=== PATIENT | male | born 1990 | race Caucasian/White ===

== ENCOUNTER → 2016-11-24 | Emergency (ER) | payer MEDICAID, OTHER ==
[~2016-11-24] VITALS: Ht 175.3 cm; Wt 84.8 kg
[~2016-11-24] MED LIST: AMAN10CA GT; COLA100C3 PO; DOXE10CA PO; FLUO10TA30 PO; KETOROLAC 30 MG/ML VIAL (J1885) IV ONE; METOCLOPRAMIDE INJ 10MG/2ML VIAL (J2765) IV ONE; NS 1,000 ML IV ONE; SUBO8MIS SL; diphenhydrAMINE INJ 50MG/ML VIAL (J1200) IV ONE
[2016-11-24 03:13] VITALS: BP 136/78
--- NOTE | 2016-11-24 04:50 | REPUSA ---
CLINICAL HISTORY: Headaches. TECHNIQUE: Multiple axial brain CT scan sections were obtained from base to vertex without contrast a dministration. COMMENTS: The study shows normal configuration of sella turcica. There are no intra or extra-axial collections. There is no mass effect or midline shift. There is no evidence of hematoma formation. No hydrocephal us is present. No abnormal calcifications are noted. No significant abnormalities are seen either in the posterior fossa or supratentorial compartment. The sinuses and mastoid air cells are patent. IMPRESSION: No change from the prior exam on 02/20/2013. No evidence of acute intracranial pathology. Thank you for your kind referral of this patient.
== END | disposition home or self-care (01) ==
LOC: M ED 05:51
DX: R51 Headache (principal)

== ENCOUNTER 2017-03-01 22:47 | Day surgery (SDC) | payer OTHER ==
[~2017-03-01] VITALS: Ht 175.3 cm; Wt 77.0 kg
[2017-03-01] MEDS: SENOKOT S TAB PO SCH (21:00)
[~2017-03-01 22:47] MED LIST changes: +AMAN100C18 PO; -AMAN10CA GT; -COLA100C3 PO; +COLA100C5 PO; -KETOROLAC 30 MG/ML VIAL (J1885) IV ONE; -METOCLOPRAMIDE INJ 10MG/2ML VIAL (J2765) IV ONE; -NS 1,000 ML IV ONE; -diphenhydrAMINE INJ 50MG/ML VIAL (J1200) IV ONE
[2017-03-01 22:50] VITALS: BP 108/58
[2017-03-01] MEDS ORDERED: OMEP20CA3 PO (23:25)
[2017-03-01] MEDS ORDERED: [UNRECOGNIZED DRUG - CODE] PO (23:25)
[2017-03-01] MEDS ORDERED: NICODIS TD (23:25)
[2017-03-01] MEDS ORDERED: SUBO4MIS SL (23:25)
[2017-03-01] MEDS ORDERED: LIDOCAINE 1% SDV INJ 30 ML VIAL As Ordered ONE (23:31)
[2017-03-01] MEDS ORDERED: BUPIVACAINE HCL 0.25% 30 ML VIAL As Ordered ONE (23:31)
[2017-03-01] MEDS ORDERED: ZOSYN 3.375 GM VIAL (J2543) As Ordered ONE (23:34)
[2017-03-01] MEDS ORDERED: MIDAZOLAM INJ 2 MG/2 ML VIAL (J2250) As Ordered ONE (23:44)
[2017-03-01] MEDS ORDERED: fentaNYL 250 MCG/5 ML INJECTION (J3010) As Ordered ONE (23:44)
--- NOTE | 2017-03-01 23:48 | HPEPDOC ---
General Surgery H&P Date of Admission Mar 01, 2017 at 22:47 History and Physical CHIEF COMPLAINT: Abdominal pain HISTORY OF PRESENT ILLNESS: Patient was transferred from [facility] emergency room where he presented today with complaints of overnight history of ongoing abdominal pain initially periumbilical later on localizing to the right lower quadrant. Patient reports sharp, constant pain over the right heart quadrant since this morning associated with few episodes of vomiting, nausea. No fevers reported. No sick contacts reported. Denies diarrhea. ALLERGIES: Please see below. HOME MEDICATIONS: Please see below. PAST MEDICAL HISTORY: 1. Previous history of heroin abuse 2. PAST SURGICAL HISTORY: 1. Left knee, meniscus surgery 2. Removal of enlarged lymph node submandibular area PERSONAL/SOCIAL HISTORY: Patient uses a cigarette, on Suboxone REVIEW OF SYSTEMS: GENERAL: Denies chills, fatigue, fever, weight gain and weight loss. HEENT: Denies blurred vision and double vision. Denies ear symptoms. Denies hoarseness. NECK: Denies any neck pain. CARDIOVASCULAR: Denies chest pain and palpitations. MUSCULOSKELETAL: Denies arthralgias, back pain and thrombophlebitis. SKIN: Denies rash. NEUROLOGIC: Denies headache, stroke and transient ischemic attack. PSYCHIATRIC: Denies anxiety and depression. ENDOCRINE: Denies thyroid disease. HEMATOLOGY/ONCOLOGY: Denies any bleeding or clotting disorder. HEART: Denies any chest pains, palpitations, paroxysmal dyspnea, orthopnea. PULMONARY: Denies chronic cough, dyspnea and wheezing. GASTROINTESTINAL: See HPI. GENITOURINARY: Denies dysuria, frequency, hematuria and nocturia. ENDOCRINE: Denies polydipsia, polyphagia, polyuria, heat or cold intolerance. INFECTIOUS: Denies any recent upper respiratory tract infection, UTI, need for use of antibiotics. NUTRITION: Reports good appetite. PHYSICAL EXAMINATION: VITAL SIGNS: Please see below. GENERAL APPEARANCE: Patient seen at bedside, appears mildly uncomfortable. Awake , alert, oriented. Pain rated 5/10 HEENT: Normocephalic, atraumatic. [place] palpebral conjunctivae. Anicteric sclerae. Lips dry CHEST: No chest wall abnormalities. Normal respiratory motion/effort. NECK: Supple. No thyromegaly. No lymphadenopathies. LUNGS: Lung sounds are clear to auscultation bilaterally. No wheezing appreciated. HEART: No chest wall abnormalities. Heart rate and rhythm are regular with no murmurs. ABDOMEN: Abdomen is flat, soft, nondistended tender over the right lower quadrant and towards her right flank area with mild guarding. No hepatosplenomegaly. No umbilical or groin herniations, SKIN: Warm, dry EXTREMITIES: Extremities have no deformities. No edema identified. NEUROLOGICAL: Awake alert and oriented ANCILLARIES: . LABORATORY DATA: Please see below. MICROBIOLOGY: Please see below. IMAGING: . CT scan of the abdomen and pelvis Acute appendicitis with associated phlegmon no abscess IMPRESSION AND PLAN: . Acute appendicitis with localized peritonitis Patient was advised need for surgery. Explained to him the details of the procedure, risks and benefits of laparoscopic appendectomy as well as expected postoperative course. He'll be given Zosyn preoperatively. Consent obtained from the patient. Vital Signs Vital Signs Date Time Temp Pulse Resp B/P (MAP) Pulse Ox O2 Delivery O2 Flow Rate FiO2 03/01/17 22:50 97.8 92 18 108/58 (75) 92 Room Air Home Medications Scheduled (Fluoxetine HCl) 10 Mg Tab, 10 MG PO DAILY, (Reported) Amantadine HCl (Amantadine HCl) 100 Mg Cap, 200 MG PO QHS, (Reported) Buprenorphine/Naloxone (Suboxone 4-1 mg) 1 Mis Mis, 1 MIS SL BID, (Reported) PATIENT CUTS 8/2MG FILM UP AND TAKES THROUGHOUT THE DAY TO TOTAL 1 FILM OF 8/ 2MG Docusate Sodium (Colace) 100 Mg Cap, 200 MG PO DAILY, (Reported) Doxepin HCl (Doxepin HCl) 10 Mg Cap, 10 MG PO QHS, (Reported) Ketorolac Tromethamine (Ketorolac Tromethamine) 10 Mg Tab, 10 MG PO Q8H Nicotine (Nicotine Step 1) 21 Mg/24 Hr Dis, 21 MG TD DAILY, (Reported) Omeprazole (Omeprazole) 20 Mg Cap, 20 MG PO DAILY, (Reported) Scheduled PRN Trimethobenzamide HCl (Trimethobenzamide HCl) 300 Mg Cap, 300 MG PO Q6H PRN for NAUSEA, (Reported) Allergies Coded Allergies: No Known Allergies (Unverified , 11/24/16) KAYLEIGH PIERRE MD Mar 01, 2017 23:48
[2017-03-02] MEDS ORDERED: PROPOFOL 200 MG/20 ML VIAL As Ordered ONE (00:28)
[2017-03-02] MEDS ORDERED: ROCURONIUM BROMIDE 50 MG/5 ML VIAL/SYRINGE As Ordered ONE (00:28)
[2017-03-02] MEDS ORDERED: LIDOCAINE 2% INJ 100 MG/5 ML SDV (FOR ANES.) As Ordered ONE (00:28)
[2017-03-02] MEDS ORDERED: ONDANSETRON 4MG/2ML VIAL (J2405) As Ordered ONE (00:28)
[2017-03-02] MEDS ORDERED: dexameTHASONE 4 MG/ML 1ML VIAL (J1100) As Ordered ONE (00:28)
[2017-03-02] MEDS ORDERED: SUCCINYLCHOLINE 100 MG/5 ML SYRINGE (J0330) As Ordered ONE (00:28)
[2017-03-02] MEDS ORDERED: HYDROmorphone HCL 2 MG/ML 1ML VIAL (J1170) As Ordered ONE (00:39)
[2017-03-02] MEDS ORDERED: LR 1,000 ML IV SCH ×2 (01:12→01:45)
[2017-03-02] MEDS ORDERED: NORCO, ANEXSIA 5/325MG TABLET (HYDROcodone/ACETAMINOPHEN) PO PRN ×2 (01:15)
[2017-03-02] MEDS ORDERED: KETOROLAC 30 MG/ML VIAL (J1885) IV PRN (01:15)
[2017-03-02] MEDS ORDERED: ACETAMINOPHEN TAB 650MG DOSE (2X325MG) PO PRN (01:15)
[2017-03-02] MEDS ORDERED: MORPHINE 4 MG/ML 1ML SYRINGE IV PRN (01:15)
[2017-03-02] MEDS ORDERED: ONDANSETRON 4MG/2ML VIAL (J2405) IV PRN ×2 (01:15→01:45)
[2017-03-02] MEDS ORDERED: HYDROmorphone HCL 1 MG/ML SYRINGE (J1170) IV PRN (01:45)
[2017-03-02] MEDS ORDERED: fentaNYL 100 MCG/2 ML INJECTION (J3010) IV PRN (01:45)
[2017-03-02] MEDS ORDERED: PERCOCET 5MG/325MG TAB PO PRN (01:45)
[2017-03-02 02:00] VITALS: BP 117/59
[2017-03-02 02:30] VITALS: BP 116/62
[2017-03-02 03:30] VITALS: BP 114/57
[2017-03-02] MEDS: PIPERACILLIN/TAZOBACTAM SOD 3.375 GM in D5W MINI-BAG PLUS 50 ML IV SCH ×2 (03:50→09:21)
[2017-03-02 04:30] VITALS: BP 109/65
[2017-03-02 06:00] VITALS: BP 107/52
[2017-03-02 07:04] LABS: ANION GAP 8 MEQ/L (8-16); BLOOD UREA NITROGEN 11 MG/DL (7-18); CALCIUM LEVEL 7.9 MG/DL (8.5-10.1); CARBON DIOXIDE LEVEL 27 MEQ/L (21-32); CHLORIDE LEVEL 106 MEQ/L (98-107); CREATININE FOR GFR 0.84 MG/DL (0.70-1.30); GLOMERULAR FILTRATION RATE > 60.0 (>60); GLUCOSE, FASTING 117 MG/DL (70-105); POTASSIUM SERUM 4.3 MEQ/L (3.5-5.1); SODIUM LEVEL 141 MEQ/L (136-145)
[2017-03-02 07:05] LABS: BASO % 0.1 % (0.0-1.0); EOS % 0.1 % (0.0-3.0); LARGE UNSTAINED CELL % 0.2 % (0.0-4.0); LYMPH # 0.8 K/mm3 (1.5-6.5); LYMPH % 8.2 % (24.0-44.0); MEAN CORPUSCULAR HEMOGLOBIN 28.6 pg (27.0-33.0); MEAN CORPUSCULAR HGB CONC 35.7 g/dl (32.0-36.5); MEAN CORPUSCULAR VOLUME 80.1 fl (80.0-96.0); MONO # 0.3 K/mm3 (0.0-0.8); MONO % 2.6 % (0.0-5.0); NEUTROPHILS # 8.5 K/mm3 (1.8-7.7); NEUTROPHILS % 88.8 % (36.0-66.0); PLATELET COUNT, AUTOMATED 221 k/mm3 (150-450); RED CELL DISTRIBUTION WIDTH 12.7 % (11.5-14.5); WHITE BLOOD COUNT 9.6 K/mm3 (4.0-10.0)
[2017-03-02] MEDS: SENOKOT S TAB PO SCH (09:21)
[2017-03-02] MEDS ORDERED: KETO10TAB PO (11:50)
--- NOTE | 2017-03-25 22:10 | ROOPDOC ---
[facility] Report Of Operation Report of Operation DATE OF PROCEDURE: 03/02/2017 PREPROCEDURE DIAGNOSES: Acute appendicitis. POSTPROCEDURE DIAGNOSES: Acute nonperforated appendicitis. PROCEDURE: Laparoscopic appendectomy. SURGEON: Checo Hinojosa MD [employer] WORKER: MARILUZ Harrington ANESTHESIA: Gen. anesthesia. ESTIMATED BLOOD LOSS: Approximately 10 mL. COMPLICATIONS: None. REMARKS: Acutely inflamed distal half of the appendix, nonperforated. PROCEDURE NOTE: Patient is a healthy 27-year-old male who was transferred from [facility] with 1 day history of abdominal pain diagnosed to have acute appendicitis. He is brought to the OR for laparoscopic appendectomy. DESCRIPTION OF PROCEDURE: Patient has been given a dose of Zosyn perioperatively.Patient was brought to the operating room, placed supine on the table. Sequential compression device placed for DVT prophylaxis. General endotracheal anesthesia started. The abdomen prepped and draped in usual sterile fashion. After a surgical timeout, we began our surgery Entry into the abdomen done through an incision above the umbilicus. Veress needle inserted on a controlled fashion. Intra-abdominal placement confirmed with saline drop technique. CO2 insufflation started to a pressure of 15 mmHg. Using the same incision a 12 mm port was placed under direct vision of laparoscope. Insertion site was inspected for injury and none was found. She was placed on a Trendelenburg position the right side tilted to about 30 to allow for better visualization of the appendix. 2 working ports were placed at the suprapubic area and left lower quadrant area under direct vision. Operative findings: The distal half of the appendix is noted mildly inflamed, thickened, with venous congestion but otherwise no perforation noted. A small amount of serous fluid in the right gutter noted. The appendix was located, the adhered bowels and mesentery was widely dissected away from the appendix freeing up the appendix from the inflammatory adhesions using [place] instrument and suction irrigation. The Surrounding bowels retracted away from the appendix. This was grasped to pull the base of the appendix into view. The mesoappendix was divided using Harmonic scalpel down to the base. A Vicryl Endoloop was placed to ligate the appendix at its base then divided with a Harmonic Scalpel the stump cauterized. Stump appears healthy. Appendix was then delivered into an Endo Catch bag. After re-insufflation the surgical site was inspected for hemostasis, the visualized fluid collections irrigated and suctioned off until clear return. Surrounding areas of the abdomen and inspected for fluid collections or signs of injury.The abdomen was deflated. All ports removed. The umbilical fascial defect repaired with 0 Vicryl in a mattress fashion. All skin incisions closed with 4-0 Monocryl in a subcuticular fashion. Steri-Strips and gauze dressing used for wound coverage. Patient was promptly awake and extubated and brought to recovery room stable. All counts of sponges and instruments verified to be correct. CHECO HINOJOSA MD Mar 25, 2017 22:10
== END 2017-03-02 14:40 | disposition home or self-care (01) ==
LOC: M MS5PR 22:47 → M SDC 22:47 → UNDOADMOB 22:47 → UNDODISOB 03-02 14:40 → M SDC 03-02 14:40
PROVIDERS: ATTEND Surgery
DX: K35.89 Other acute appendicitis (principal); K21.9 Gastro-esophageal reflux disease without esophagitis; G47.30 Sleep apnea, unspecified; Z87.891 Personal history of nicotine dependence; Z79.899 Other long term (current) drug therapy; F11.21 Opioid dependence, in remission

== ENCOUNTER 2017-08-02 17:00 | Emergency (ER) | payer OTHER | END 2017-08-02 18:48 | disposition home or self-care (01) | LOC: M ED 17:00 | DX: H57.04 Mydriasis (principal); Z83.511 Family history of glaucoma; Z79.891 Long term (current) use of opiate analgesic | CPT/HCPCS: 99283 ==

== ENCOUNTER → 2018-04-16 | Outpatient (REF) | payer OTHER ==
[2018-04-17 07:25] LABS: CHLAMYDIA DNA AMPLIFICATION NEGATIVE (NEGATIVE); GC DNA AMPLIFICATION NEGATIVE (NEGATIVE)
== END ==
LOC: M SFHCLERA 14:35
DX: R30.0 Dysuria (principal)

== ENCOUNTER → 2018-06-09 | Outpatient (REF) | payer OTHER | LOC: M SFHCLERA 11:33 | DX: R53.81 Other malaise (principal) ==

== ENCOUNTER → 2018-11-12 | Outpatient (REF) | payer OTHER ==
[~2018-11-12] MED LIST changes: +KETO10TAB PO; +NICO21DI34 TD; +OMEP20CA3 PO; +SUBO4MIS SL; +TRIM300C23 PO; +suboxone PO
[2018-11-12 17:15] LABS: ALT/SGPT 24 U/L (12-78); BILIRUBIN,TOTAL 0.3 MG/DL (0.2-1.0); BLOOD UREA NITROGEN 9 MG/DL (7-18); CALCIUM LEVEL 8.3 MG/DL (8.5-10.1); CARBON DIOXIDE LEVEL 32 MEQ/L (21-32); CHLORIDE LEVEL 106 MEQ/L (98-107); GLOMERULAR FILTRATION RATE > 60.0 (>60); GLUCOSE, FASTING 68 MG/DL (70-100); POTASSIUM SERUM 4.2 MEQ/L (3.5-5.1); SODIUM LEVEL 141 MEQ/L (136-145); TOTAL PROTEIN 6.6 GM/DL (6.4-8.2)
== END ==
LOC: M LABDRAW1 15:40
PROVIDERS: ATTEND Physician Assistant
DX: M54.2 Cervicalgia (principal)

== ENCOUNTER → 2019-01-08 | Outpatient (CLI) | payer OTHER ==
--- NOTE | 2019-01-08 12:18 | REP ---
Whole body radionuclide bone scan: The study is performed with MDP radiolabeled with 21.7 mCi of technetium 99m. Radiotracer distribution throughout the skeletal structures is normal. There are no focal areas of increased uptake. Two tiny droplets of radiotracer are noted along the lateral skin surface of the right thigh, likely artifact from radiolabeled urine. Impression: Normal radionuclide bone scan. Electronically Signed by Clay Corral MD 01/08/2019 12:09 P
== END ==
LOC: M RAD 07:52
PROVIDERS: ATTEND Physician Assistant
DX: Z87.39 Personal history of other diseases of the musculoskeletal system and connective tissue (principal)
CPT/HCPCS: 78306; A9503

== ENCOUNTER → 2019-04-26 | Outpatient (REF) | payer OTHER ==
[~2019-04-26] MED LIST changes: -OMEP20CA3 PO; +OMEP20CA4 PO
[2019-04-26 13:37] LABS: FOLLICLE STIMULATING HORMONE 2.7 mIU/mL (1.4-18.1); PROLACTIN 6.8 NG/ML (2.1-17.7)
[2019-04-29 10:07] LABS: TESTOSTERONE %FREE+WEAKLY BOUN 13.4 % (9.0-46.0); TESTOSTERONE FREE+WEAKLY BOUND 33.2 ng/dL (40.0-250.0); TESTOSTERONE TOTAL 248 ng/dL (264-916)
== END ==
LOC: M LABDRAW1 11:37
PROVIDERS: ATTEND Nurse Practitioner Family
DX: E29.1 Testicular hypofunction (principal)

== ENCOUNTER → 2019-09-12 | Outpatient (CLI) | payer OTHER ==
[~2019-09-12] MED LIST changes: +OMEP1CAP73 PO; -OMEP20CA4 PO
[2019-09-12 11:25] LABS: EOS # 0.2 10^3/uL (0.0-0.5); EOS % 5.7 % (0.0-3.0); HEMATOCRIT 37.7 % (42.0-52.0); HEMOGLOBIN 12.9 g/dl (13.5-17.5); LYMPH # 1.6 10^3/uL (1.5-5.0); LYMPH % 37.4 % (24.0-44.0); MEAN CORPUSCULAR HEMOGLOBIN 27.9 pg (27.0-33.0); MEAN CORPUSCULAR HGB CONC 34.2 g/dl (32.0-36.5); MEAN CORPUSCULAR VOLUME 81.4 fl (80.0-96.0); MONO # 0.3 10^3/uL (0.0-0.8); MONO % 7.6 % (0.0-5.0); NEUTROPHILS % 48.1 % (36.0-66.0); PLATELET COUNT, AUTOMATED 219 10^3/uL (150-450); RED BLOOD COUNT 4.63 10^6/uL (4.30-6.10); WHITE BLOOD COUNT 4.2 10^3/uL (4.0-10.0)
[2019-09-12 11:57] LABS: ALBUMIN 3.8 GM/DL (3.2-5.2); ALT/SGPT 36 U/L (12-78); BILIRUBIN,DIRECT 0.1 MG/DL (0.0-0.2); BILIRUBIN,TOTAL 0.5 MG/DL (0.2-1.0); BLOOD UREA NITROGEN 9 MG/DL (7-18); CREATININE FOR GFR 0.73 MG/DL (0.70-1.30); FERRITIN 76 NG/ML (26-388); GLOMERULAR FILTRATION RATE > 60.0 (>60); IRON (FE) 121 UG/DL (65-175); PERCENT SATURATION 40.9 % (19.7-50.0); TOTAL IRON BINDING CAPACITY 296 UG/DL (250-450); TOTAL PROTEIN 6.7 GM/DL (6.4-8.2)
[2019-09-13 09:47] LABS: HEPATITIS B SURFACE ANTIBODY POSITIVE (POSITIVE)
[2019-09-13 09:58] LABS: HEPATITIS B SURFACE ANTIGEN NEGATIVE (NEGATIVE)
[2019-09-13 12:41] LABS: HEPATITIS C VIRUS ABY INDEX < 0.0 INDEX (<0.8)
== END ==
LOC: M LAB 10:03
PROVIDERS: ATTEND Internal Medicine Gastroenterology
DX: R94.5 Abnormal results of liver function studies (principal)

== ENCOUNTER → 2019-12-27 | Outpatient (CLI) | payer OTHER ==
[~2019-12-27] MED LIST changes: +SERT-141 PO
== END ==
LOC: M LABSMTC 09:32
PROVIDERS: ATTEND Anesthesiology
DX: Z03.818 Encounter for observation for suspected exposure to other biological agents ruled out (principal); Z11.59 Encounter for screening for other viral diseases
CPT/HCPCS: C9803; U0003

== ENCOUNTER 2019-12-30 09:30 | Day surgery (SDC) | payer OTHER ==
[~2019-12-30] VITALS: Ht 176.5 cm; Wt 89.3 kg
[~2019-12-30 09:30] MED LIST changes: +LIDOCAINE 2% 100MG/5ML SDV (FOR ANES.) As Ordered ONE; +propofoL 200 MG/20 ML VIAL As Ordered ONE
[2019-12-30] MEDS ORDERED: NS 1,000 ML IV ONE (10:00)
[2019-12-30] MEDS ORDERED: MIDAZOLAM INJ 2MG/2ML VIAL (J2250 PER 1MG) As Ordered ONE (10:09)
--- NOTE | 2019-12-30 10:49 | ROOR ---
Patient Name: Lottie Daly Procedure Date: 12/30/2019 10:13 AM Date of : 1990 Age: 29 Room: [facility] Gender: Male Note Status: Finalized Procedure: Upper GI endoscopy Indications: Epigastric abdominal pain, Iron deficiency anemia secondary to chronic blood loss, Iron deficiency anemia Providers: Aly Guerrero MD Referring MD: EFRAIN DOUGLAS NP Requesting Provider: Medicines: Monitored Anesthesia Care Complications: No immediate complications. Procedure: Pre-Anesthesia Assessment: - Prior to the procedure, a History and Physical was performed, and patient medications and allergies were reviewed. The patient is competent. The risks and benefits of the procedure and the sedation options and risks were discussed with the patient. All questions were answered and informed consent was obtained. Patient identification and proposed procedure were verified by the physician, the nurse and the anesthesiologist in the procedure room. Mental Status Examination: alert and oriented. Airway Examination: normal oropharyngeal airway and neck mobility. Respiratory Examination: clear to auscultation. CV Examination: normal. Prophylactic Antibiotics: The patient does not require prophylactic antibiotics. Prior Anticoagulants: The patient has taken no previous anticoagulant or antiplatelet agents. ASA Grade Assessment: II - A patient with mild systemic disease. After reviewing the risks and benefits, the patient was deemed in satisfactory condition to undergo the procedure. The anesthesia plan was to use monitored anesthesia care (MAC). Immediately prior to administration of medications, the patient was re-assessed for adequacy to receive sedatives. The heart rate, respiratory rate, oxygen saturations, blood pressure, adequacy of pulmonary ventilation, and response to care were monitored throughout the procedure. The physical status of the patient was re-assessed after the procedure. The Endoscope was introduced through the mouth, and advanced to the second part of duodenum. The upper GI endoscopy was accomplished without difficulty. The patient tolerated the procedure well. Findings: The examined esophagus was normal. The Z-line was regular and was found 43 cm from the incisors. Scattered mild inflammation characterized by erythema and granularity was found in the gastric antrum. Biopsies were taken with a cold forceps for Helicobacter pylori testing. Verification of patient identification for the specimen was done by the physician and nurse using the patient's name, date and medical record number. Estimated blood loss was minimal. The duodenal bulb and second portion of the duodenum were normal. Biopsies for histology were taken with a cold forceps for evaluation of celiac disease. Impression: - Normal esophagus. - Z-line regular, 43 cm from the incisors. - Gastritis. Biopsied. - Normal duodenal bulb and second portion of the duodenum. Biopsied. Recommendation: - Patient has a contact number available for emergencies. The signs and symptoms of potential delayed complications were discussed with the patient. Return to normal activities tomorrow. Written discharge instructions were provided to the patient. - High fiber diet. - Continue present medications. - Await pathology results. - Telephone GI clinic for pathology results in 2 weeks. - Return to primary care physician. Aly Guerrero MD Aly Guerrero MD 12/30/2019 10:49:05 AM Electronically signed by Aly Guerrero MD Number of Addenda: 0 Note Initiated On: 12/30/2019 10:13 AM Estimated Blood Loss: Estimated blood loss was minimal.
--- NOTE | 2019-12-30 10:52 | ROOR ---
Patient Name: Lottie Daly Procedure Date: 12/30/2019 10:15 AM Date of : 1990 Age: 29 Room: [facility] Gender: Male Note Status: Finalized Procedure: Colonoscopy Indications: Change in bowel habits, Constipation Providers: Aly Guerrero MD Referring MD: EFRAIN DOUGLAS NP Requesting Provider: Medicines: Monitored Anesthesia Care Complications: No immediate complications. Procedure: Pre-Anesthesia Assessment: - Prior to the procedure, a History and Physical was performed, and patient medications and allergies were reviewed. The patient is competent. The risks and benefits of the procedure and the sedation options and risks were discussed with the patient. All questions were answered and informed consent was obtained. Patient identification and proposed procedure were verified by the physician, the nurse and the anesthesiologist in the procedure room. Airway Examination: normal oropharyngeal airway and neck mobility. Respiratory Examination: clear to auscultation. CV Examination: normal. Prophylactic Antibiotics: The patient does not require prophylactic antibiotics. Prior Anticoagulants: The patient has taken no previous anticoagulant or antiplatelet agents. ASA Grade Assessment: II - A patient with mild systemic disease. After reviewing the risks and benefits, the patient was deemed in satisfactory condition to undergo the procedure. The anesthesia plan was to use monitored anesthesia care (MAC). Immediately prior to administration of medications, the patient was re-assessed for adequacy to receive sedatives. The heart rate, respiratory rate, oxygen saturations, blood pressure, adequacy of pulmonary ventilation, and response to care were monitored throughout the procedure. The physical status of the patient was re-assessed after the procedure. The Colonoscope was introduced through the anus and advanced to the terminal ileum, with identification of the appendiceal orifice and IC valve. The colonoscopy was performed without difficulty. The patient tolerated the procedure well. The quality of the bowel preparation was adequate to identify polyps 6 mm and larger in size and fair. The terminal ileum, ileocecal valve, appendiceal orifice, and rectum were photographed. Scope insertion time was 3 minutes. Scope withdrawal time was 9 minutes. The total duration of the procedure was 12 minutes. Findings: The perianal and digital rectal examinations were normal. The terminal ileum appeared normal. The left colon was moderately tortuous. Advancing the scope required using scope torsion. Non-bleeding external and internal hemorrhoids were found during retroflexion. The hemorrhoids were medium-sized. Impression: - Preparation of the colon was fair. - The examined portion of the ileum was normal. - Tortuous colon. - Non-bleeding external and internal hemorrhoids. - No specimens collected. Recommendation: - Patient has a contact number available for emergencies. The signs and symptoms of potential delayed complications were discussed with the patient. Return to normal activities tomorrow. Written discharge instructions were provided to the patient. - High fiber diet. - Continue present medications. - Repeat colonoscopy at age 50 for screening purposes. - Telephone GI clinic if symptomatic in 2 weeks. - Return to primary care physician. Aly Guerrero MD Aly Guerrero MD 12/30/2019 10:52:03 AM Electronically signed by Aly Guerrero MD Number of Addenda: 0 Note Initiated On: 12/30/2019 10:15 AM Estimated Blood Loss: Estimated blood loss was minimal.
[2019-12-30 11:10] VITALS: BP 125/75
== END 2019-12-30 11:10 | disposition home or self-care (01) ==
LOC: M OPP 09:30
PROVIDERS: ATTEND Internal Medicine Gastroenterology
DX: Q43.8 Other specified congenital malformations of intestine (principal); K64.8 Other hemorrhoids; K59.00 Constipation, unspecified; K29.70 Gastritis, unspecified, without bleeding; D50.0 Iron deficiency anemia secondary to blood loss (chronic); R10.13 Epigastric pain; Z79.899 Other long term (current) drug therapy; Z87.891 Personal history of nicotine dependence
CPT/HCPCS: 43239; 45378; 88305; J2250

== ENCOUNTER → 2020-07-02 | Outpatient (CLI) | payer SELFPAY ==
[~2020-07-02] MED LIST changes: -LIDOCAINE 2% 100MG/5ML SDV (FOR ANES.) As Ordered ONE; -propofoL 200 MG/20 ML VIAL As Ordered ONE
== END ==
LOC: M LABSMTC 08:51
PROVIDERS: ATTEND Pediatrics
DX: Z20.828 Contact with and (suspected) exposure to other viral communicable diseases (principal)

== ENCOUNTER → 2020-11-29 | Outpatient (REF) ==
--- NOTE | 2020-11-30 01:47 | REP ---
INDICATION: DDD COMPARISON: None. TECHNIQUE: AP, lateral, coned-down views of the lumbar spine. FINDINGS: Three views of the lumbosacral spine demonstrate satisfactory alignment and lordosis without acute fracture / compression injury or subluxation. Minimal disc space narrowing at L4-5 and L5-S1 cannot be excluded. Examination is otherwise age-appropriate. IMPRESSION: 1. No acute fracture / compression injury or subluxation. 2. Minimal disc space narrowing at L4-5 and L5-S1 cannot be excluded. <Electronically signed by Dillan Carter > 11/30/20 [id number]
--- NOTE | 2020-11-30 01:53 | REP ---
INDICATION: DDD COMPARISON: 08/30/2011 TECHNIQUE: AP, lateral, bilateral oblique and sunrise views. FINDINGS: The osseous structures and joint spaces are intact and normal. There is no evidence for acute fracture or dislocation. No joint effusion is appreciated. Surrounding soft tissues are unremarkable. No subcutaneous emphysema or radiodense foreign body. IMPRESSION: Normal age-appropriate left knee examination. <Electronically signed by Dillan Carter > 11/30/20 [id number]
== END ==
LOC: M RAD 16:54
PROVIDERS: ATTEND Internal Medicine
DX: M54.5 Low back pain (principal)

== ENCOUNTER → 2021-04-20 | Outpatient (CLI) | payer OTHER ==
--- NOTE | 2021-04-20 12:06 | REP ---
INDICATION: L AXILLARY MASS W/PAIN DOWN ARM ?NERVE INVOLVEMENT. Patient reports a small, BB sized, nodule in the left axilla which is been there for years and now has a 2nd small nodule adjacent. Pain radiating down the arm. COMPARISON: None. TECHNIQUE: Skin markers are affixed to the skin above and below the site of concern. Axial, coronal, and sagittal imaging planes utilized. The study was performed with the arm raised. T1 and T2 weighted scans are included with without fat saturation. FINDINGS: Subcutaneous fat layer is homogeneous and normal in the area the limited by the 2 MR markers placed at the skin except for the presence of a small 5 mm low T1 signal intensity superficial subdermal nodule. There is no evidence of abnormal T2 signal either within or adjacent to this nodule. There is no evidence of axillary adenopathy or deeper soft tissue mass. Pectoralis triceps and shoulder musculature is normal in signal intensity course and caliber on T1 and T2 weighted scans. Cortical and medullary bone signal intensity are normal as visualized. No vascular abnormality is observed. IMPRESSION: Tiny 5 mm superficial subdermal nodule in the subcutaneous space between the 2 MR markers. Not specific. No other evidence of soft tissue mass. <Electronically signed by Melo Shahid > 04/20/21 [id number]
== END ==
LOC: M PLARAD 09:58
PROVIDERS: ATTEND Dermatology
DX: M79.601 Pain in right arm (principal); R22.31 Localized swelling, mass and lump, right upper limb

== ENCOUNTER → 2021-06-05 | Outpatient (REF) | payer OTHER | LOC: M LAB REF 18:06 | PROVIDERS: ATTEND Physician Assistant | DX: L57.0 Actinic keratosis (principal) ==

== ENCOUNTER → 2021-06-22 | Outpatient (REF) | payer OTHER | LOC: M LAB REF 08:36 | PROVIDERS: ATTEND Surgery | DX: L72.11 Pilar cyst (principal) ==

== ENCOUNTER → 2022-05-29 | Outpatient (CLI) | payer OTHER ==
[~2022-05-29] MED LIST changes: +ADDE1TAB14 PO; +BUPR300T92 PO; +FENO160T10 PO; +LOPI600T PO; +OMEG10002 PO; +OXYB5TAB10; +PARO40TA3 PO
== END ==
LOC: M LABSMTC 09:53
PROVIDERS: ATTEND Anesthesiology
DX: Z01.812 Encounter for preprocedural laboratory examination (principal); Z20.822 Contact with and (suspected) exposure to COVID-19

== ENCOUNTER 2022-06-03 11:46 | Day surgery (SDC) | payer OTHER ==
[~2022-06-03] VITALS: Ht 176.5 cm; Wt 99.3 kg
[~2022-06-03 11:46] MED LIST changes: +NS 1,000 ML IV ONE
[2022-06-03] MEDS ORDERED: LOPI600T PO (12:26)
[2022-06-03] MEDS ORDERED: HEARTAB2 PO (12:26)
[2022-06-03] MEDS ORDERED: LIDOCAINE 2% 100MG/5ML SDV (FOR ANES.) As Ordered ONE (14:12)
[2022-06-03] MEDS ORDERED: propofoL 200 MG/20 ML VIAL As Ordered ONE (14:12)
[2022-06-03] MEDS ORDERED: fentaNYL 100 MCG/2 ML INJECTION As Ordered ONE (14:12)
[2022-06-03 15:22] VITALS: BP 159/72
== END 2022-06-03 15:24 | disposition home or self-care (01) ==
LOC: M OPP 11:46
PROVIDERS: ATTEND Internal Medicine Gastroenterology
DX: K31.89 Other diseases of stomach and duodenum (principal); K21.9 Gastro-esophageal reflux disease without esophagitis; F41.9 Anxiety disorder, unspecified; F32.A Depression, unspecified; G47.30 Sleep apnea, unspecified; F17.290 Nicotine dependence, other tobacco product, uncomplicated; F90.9 Attention-deficit hyperactivity disorder, unspecified type; Z87.820 Personal history of traumatic brain injury; Z79.891 Long term (current) use of opiate analgesic; Z79.899 Other long term (current) drug therapy; Z82.49 Family history of ischemic heart disease and other diseases of the circulatory system; Z80.3 Family history of malignant neoplasm of breast; Z81.8 Family history of other mental and behavioral disorders; Z80.0 Family history of malignant neoplasm of digestive organs
CPT/HCPCS: 43235; 91035; J3010

== ENCOUNTER → 2022-09-26 | Outpatient (CLI) | payer OTHER ==
[~2022-09-26] MED LIST changes: +HEARTAB2 PO; -NS 1,000 ML IV ONE; +PROHANCE 279.3MG/ML 15ML VIAL ONE; +PROHANCE 279.3MG/ML 5ML VIAL ONE
== END ==
LOC: M PLAIMG 08:44
DX: R41.3 Other amnesia (principal); G44.85 Primary stabbing headache